=== PATIENT | female | born 1995 | race Two or more races ===

== ENCOUNTER 2021-05-26 16:59 | Outpatient (CLI) | payer OTHER | END 2021-05-27 07:42 | disposition home or self-care (01) | LOC: OBS/DEL 16:59 | PROVIDERS: ATTEND Obstetrics & Gynecology | DX: O26.893 Other specified pregnancy related conditions, third trimester (principal); N81.11 Cystocele, midline; Z3A.30 30 weeks gestation of pregnancy ==

== ENCOUNTER 2021-07-27 07:00 | Inpatient (IN) | payer OTHER ==
[~2021-07-27] VITALS: Ht 152.4 cm; Wt 3.2 kg
[2021-08-01] MEDS ORDERED: VITAMIN C100 MG PO (09:18)
[2021-08-01] MEDS ORDERED: PRENATAL CAPLE1 EAC1 PO (09:19)
== END 2021-08-03 16:26 | disposition home or self-care (01) | DRG 785 ==
LOC: OB/GYN 08-01 07:00 → O/R 08-01 14:00 → OB/GYN 08-01 18:45
PROVIDERS: ADMIT Obstetrics & Gynecology; ATTEND Obstetrics & Gynecology
PROC: 0UB70ZZ Excision of Bilateral Fallopian Tubes, Open Approach (ICD-10-PCS; 2021-08-01)
PROC: 4A1HXFZ Monitoring of Products of Conception, Cardiac Rhythm, External Approach (ICD-10-PCS; 2021-08-01)
PROC: 10D00Z1 Extraction of Products of Conception, Low, Open Approach (ICD-10-PCS; principal; 2021-08-01 18:45)
DX: O34.211 Maternal care for low transverse scar from previous cesarean delivery (principal); Z30.2 Encounter for sterilization; O82 Encounter for cesarean delivery without indication; Z37.0 Single live birth; Z3A.39 39 weeks gestation of pregnancy